=== PATIENT | female | born 1960 | race Caucasian/White ===

== ENCOUNTER → 2016-06-02 | Outpatient (CLI) | payer OTHER ==
[2016-06-02 14:40] LABS: CHLORIDE,CL 109 mmol/L (98-110); SODIUM,NA 140 mmol/L (136-146)
== END ==
LOC: MW.CHRC 13:43
PROVIDERS: ATTEND Family Medicine
DX: E66.01 Morbid (severe) obesity due to excess calories (principal); E03.9 Hypothyroidism, unspecified
CPT/HCPCS: 36415; 80053; 80061; 83036; 84439; 84443; 84481; 85025

== ENCOUNTER → 2016-06-07 | Outpatient (CLI) | payer OTHER | END | disposition home or self-care (01) | LOC: MW.MNT 12:40 | PROVIDERS: ATTEND Family Medicine | DX: E66.09 Other obesity due to excess calories (principal); Z68.43 Body mass index [BMI] 50.0-59.9, adult | CPT/HCPCS: 97802 ==

== ENCOUNTER 2016-08-26 07:30 | Day surgery (SDC) | payer OTHER ==
[~2016-08-26 07:30] MED LIST: Bupivacaine 0.5% 10 ML SDV ONE; Lactated Ringers 1,000 ML IV SCH; Lidocaine 1% 20 ML MDV ONE; Lidocaine 2% 5 ML SDV ONE; Midazolam 1 MG/ML 2 ML SDV ONE; Propofol 200 MG/20 ML SDV ONE; Sodium Chloride 0.9% 10 ML Syringe FLUSH PRN; Sodium Chloride 0.9% 2.5 ML Syringe FLUSH PRN; ceFAZolin 2 GM in Premix Bag 1 BAG IV ONE; fentaNYL 100 MCG/2 ML SDV ONE
--- NOTE | 2016-08-26 09:00 | PCM.PREANE ---
Preanesthetic Assessment - Anesthesia/Transfusion/Family Hx Anesthesia History: Prior Anesthesia Without Reaction Other Type of Anesthesia Reaction Comment: "anxiety while being put under for naso/sinus surgery" Family History of Anesthesia Reaction: No Transfusion History: No Prior Transfusion(s) Intubation History: Unknown - Review of Systems General: No Symptoms Pulmonary: No Symptoms Cardiovascular: No Symptoms Gastrointestinal: No symptoms Neurological: No Symptoms Other: Reports: None - Physical Assessment NPO Status Date: 08/25/16 NPO Status Time: 23:00 O2 Sat by Pulse Oximetry: 96 Respiratory Rate: 16 Vital Signs: Last Vital Signs Temp 36.3 C 08/26/16 07:53 Pulse 84 08/26/16 07:53 Resp 16 08/26/16 07:53 BP 136/83 08/26/16 07:53 Pulse Ox 96 08/26/16 07:53 Height: 1.6 m Weight: 127.459 kg ASA Class: 2 Mental Status: Alert & Oriented x3 Airway Class: Mallampati = 2 Dentition: Reports: Normal Dentition Thyro-Mental Finger Breadths: 3 Mouth Opening Finger Breadths: 3 ROM/Head Extension: Full Lungs: Clear to auscultation, Normal respiratory effort - Allergies Allergies/Adverse Reactions: Allergies Allergy/AdvReac Type Severity Reaction Status Date / Time metronidazole Allergy Rash Verified 08/23/16 08:11 - Blood Blood Available: No - Anesthesia Plan Pre-Op Medication Ordered: None - Acknowledgements Anesthesia Type Planned: MAC Pt an Appropriate Candidate for the Planned Anesthesia: Yes Alternatives and Risks of Anesthesia Discussed w Pt/Guardian: Yes Pt/Guardian Understands and Agrees with Anesthesia Plan: Yes PreAnesthesia Questionnaire HEENT History: Reports: Allergic Rhinitis, Other (See Below) Other HEENT History: wears glasses Cardiovascular History: Reports: Heart Murmur, High Cholesterol Genitourinary History: Reports: 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: Musculoskeletal History: Reports: Arthritis, Back Pain, Chronic Endocrine/Metabolic History: Reports: Obesity/BMI 30+ (BMI 49.8), Other (See Below) Other Endocrine/Metabolic History: states has been on thyroid medication in the past, none now - Past Surgical History Head Surgeries/Procedures: Reports: None HEENT Surgical History: Reports: Naso-Sinus Surgery Female Surgical History: Reports: Section (x2), Endometrial Ablation , Hysterectomy, Tubal Ligation - SUBSTANCE USE Smoking Status *Q: Never Smoker Recreational Drug Use History: No - HOME MEDS Home Medications: Home Meds Fluticasone Propionate [Flonase Allergy Relief] 2 spray NASBOTH DAILY 08/23/16 [ History] Ibuprofen 1 tab PO ASDIRECTED PRN 08/23/16 [History] Multivitamin [Multivitamins] 1 tab PO DAILY 08/23/16 [History] Polyethylene Glycol 3350 [Miralax] 1 dose PO ASDIRECTED PRN 08/23/16 [History] Simvastatin [Zocor] 20 mg PO DAILY 08/23/16 [History] - CURRENT (IN HOUSE) MEDS Current Meds: Current Medications Lactated Ringer's (Ringers, Lactated) 1,000 mls @ 125 mls/hr IV ASDIRECTED RASHEED Last Admin: 08/26/16 07:52 Dose: 125 mls/hr Sodium Chloride (Saline Flush) 10 ml FLUSH ASDIRECTED PRN PRN Reason: Keep Vein Open Sodium Chloride (Saline Flush) 2.5 ml FLUSH ASDIRECTED PRN PRN Reason: Keep Vein Open Discontinued Medications Bupivacaine HCl (Sensorcaine-Mpf 0.5%) Confirm Administered Dose 10 ml .ROUTE .STK-MED ONE Stop: 08/26/16 07:25 Fentanyl (Sublimaze) Confirm Administered Dose 100 mcg .ROUTE .STK-MED ONE Stop: 08/26/16 07:13 Cefazolin Sodium/Dextrose 2 gm (/ Premix) 50 mls @ 100 mls/hr IV ONETIME ONE Stop: 08/25/16 13:59 Lidocaine (Xylocaine-Mpf 2%) Confirm Administered Dose 5 ml .ROUTE .STK-MED ONE Stop: 08/26/16 07:12 Lidocaine HCl (Xylocaine 1%) Confirm Administered Dose 20 ml .ROUTE .STK-MED ONE Stop: 08/26/16 07:25 Midazolam HCl (Versed 1 Mg/Ml) Confirm Administered Dose 2 mg .ROUTE .STK-MED ONE Stop: 08/26/16 07:13 Propofol (Diprivan 20 Ml) Confirm Administered Dose 400 mg .ROUTE .STK-MED ONE Stop: 08/26/16 07:13
[2016-08-26] MEDS ORDERED: Propofol 200 MG/20 ML SDV ONE (10:07)
--- NOTE | 2016-08-26 10:26 | PCM.OPNOTE ---
- General Post-Op/Procedure Note Date of Surgery/Procedure: 08/26/16 Operative Procedure(s): Excision left breast lesion, excision left upper back Findings: Sebaceous cyst left upper back, superficial skin lesion on left anterior breast Pre Op Diagnosis: sebaceous cyst, skin lesion Post-Op Diagnosis: sebaceous cyst, skin lesion Anesthesia Technique: [facility] [place] Primary Surgeon: Eve Clark Condition: Good
[2016-08-26 14:56] VITALS: BP 124/72
--- NOTE | 2016-08-27 12:15 | OR ---
SURGEON: CHIDI BECKER MD DATE OF PROCEDURE: 08/26/2016 PREOPERATIVE DIAGNOSES: Left back lesion, left breast lesion. POSTOPERATIVE DIAGNOSES: Left back lesion, left breast lesion. PROCEDURE PERFORMED: Excision of left upper back lesion, excision of left breast lesion. ANESTHESIA: MAC. FLOORING GRADER: Dr. Mauri Bailey, residential finish carpenter. ESTIMATED BLOOD LOSS: 5 mL. FINDINGS: 1. Superficial left breast skin lesion. 2. Left upper back sebaceous cyst. COMPLICATIONS: None. INDICATIONS: The patient presents to clinic with complaint of a left upper back lesion as well as a left breast lesion. The upper back lesion has been a subcutaneous mass and has been present for some time. It will intermittently get infected, rupture, heal, but then refill. This is consistent with a sebaceous cyst, and the patient would like to have the lesion removed. The patient had a biopsy performed on her left breast many years ago. Afterwards, she developed a scar at the 12 o'clock position, just above her areola. This area fills up with skin cells and dirt, and will sometimes become infected. The patient would like to have this lesion removed as well. We discussed the procedure as well as expected perioperative course. We discussed the risks including bleeding, infection, or damage to surrounding structures. The patient verbalized understanding and wished to proceed. PROCEDURE IN DETAIL: The patient was brought into the operating room and left on the operating room cart. Monitored anesthesia care was induced, and the patient was then moved to the OR table. She was placed in right lateral decubitus position and all bony surfaces were appropriately padded and supported. We started by prepping and draping the back in usual sterile fashion. An elliptical incision was made around the top of the left upper back mass. Dissection was carried down through the subcutaneous tissues using cautery. I entered a cystic-like structure that contained proteinaceous material. This confirmed my diagnosis of a sebaceous cyst. Using a tenotomy scissors, I made my way around the cyst wall and excised it from the surrounding subcutaneous tissues. Once the cyst was removed, I sent it to pathology labeled as left upper back sebaceous cyst. The wound was then closed with interrupted Vicryls and a running 4-0 Monocryl suture. Steri-Strips and sterile dressings were applied. The back table was kept sterile. We then turned our attention to the left breast lesion. The left breast was then prepped and draped in the usual standard fashion. I anesthetized the area underneath the skin lesion with 1% lidocaine plain. The lesion had already been marked out along the skin lines. An elliptical incision was made around the lesion following the skin lines. Using cautery, I dissected down to the subcutaneous tissue and undermined the lesion. Once the lesion was removed, I then sent it to pathology labeled as left breast skin lesion. Hemostasis was achieved with cautery. The wound was then closed with interrupted Vicryls in the subcutaneous layer and with a running 4-0 Monocryl suture in the subcuticular space. Steri-Strips and sterile dressings were applied. All counts were complete and correct at the end of the case. The patient was taken to the PACU in stable condition. DUYEN GOMEZ /[id number]
--- NOTE | 2016-09-09 13:37 | PCM.SN ---
- Free Text/Narrative Note: Operative Report Addendum: The patient had a left upper back excised that was 20 x 15 x 8mm in size. She had a left breast skin lesion removed that was 17 x 8 x 5mm in size.
== END 2016-08-26 11:35 | disposition home or self-care (01) ==
LOC: MW.SDS 07:30
PROVIDERS: ATTEND Surgery
PROC: 0HQ6XZZ Repair Back Skin, External Approach (ICD-10-PCS; principal; 2016-08-26)
PROC: 0HQUXZZ (ICD-10-PCS; 2016-08-26)
PROC: 0HB6XZZ Excision of Back Skin, External Approach (ICD-10-PCS; 2016-08-26)
PROC: 0HB5XZZ Excision of Chest Skin, External Approach (ICD-10-PCS; 2016-08-26)
DX: L72.0 Epidermal cyst (principal); N60.82 Other benign mammary dysplasias of left breast; L82.0 Inflamed seborrheic keratosis; E66.01 Morbid (severe) obesity due to excess calories; Z68.42 Body mass index [BMI] 45.0-49.9, adult; R73.03 Prediabetes; Z79.1 Long term (current) use of non-steroidal anti-inflammatories (NSAID); Z79.899 Other long term (current) drug therapy; Z91.09 Other allergy status, other than to drugs and biological substances
CPT/HCPCS: 11404; 12031; 88304; J2250; J3010; J7120; 00300; J2704

== ENCOUNTER 2021-12-21 22:51 | Emergency (ER) | payer OTHER ==
[2021-12-21 23:01] VITALS: BP 167/86; PULSE 85
== END 2021-12-21 23:27 | disposition home or self-care (01) ==
LOC: MW.ED 22:51
DX: S93.402A Sprain of unspecified ligament of left ankle, initial encounter (principal); E78.00 Pure hypercholesterolemia, unspecified; E66.9 Obesity, unspecified; Z68.43 Body mass index [BMI] 50.0-59.9, adult; Z79.899 Other long term (current) drug therapy; Z88.8 Allergy status to other drugs, medicaments and biological substances; W01.0XXA Fall on same level from slipping, tripping and stumbling without subsequent striking against object, initial encounter; Y99.0 Civilian activity done for income or pay
CPT/HCPCS: 73610-26-LT; 73610-LT; 99283

== ENCOUNTER 2022-03-05 06:35 | Day surgery (SDC) | payer OTHER ==
[~2022-03-05 06:35] MED LIST changes: -Bupivacaine 0.5% 10 ML SDV ONE; -Lidocaine 1% 20 ML MDV ONE; -Lidocaine 2% 5 ML SDV ONE; -Midazolam 1 MG/ML 2 ML SDV ONE; -Propofol 200 MG/20 ML SDV ONE; -Sodium Chloride 0.9% 10 ML Syringe FLUSH PRN; -Sodium Chloride 0.9% 2.5 ML Syringe FLUSH PRN; -ceFAZolin 2 GM in Premix Bag 1 BAG IV ONE; -fentaNYL 100 MCG/2 ML SDV ONE
[2022-03-05] MEDS ORDERED: fentaNYL 100 MCG/2 ML SDV ONE (07:20)
[2022-03-05] MEDS ORDERED: Propofol 200 MG/20 ML SDV ONE ×2 (07:20→08:18)
[2022-03-05] MEDS ORDERED: Lidocaine 2% 5 ML SDV ONE (07:20)
[2022-03-05] MEDS ORDERED: Dexmedetomidine 200 MCG/2 ML SDV ONE (07:26)
[2022-03-05] MEDS ORDERED: Water For Injection, Sterile 20 ML ONE (07:27)
[2022-03-05] MEDS ORDERED: Lactated Ringers 1,000 ML IV SCH (08:45)
[2022-03-05 10:58] VITALS: BP 113/76; PULSE 68
== END 2022-03-05 09:20 | disposition home or self-care (01) ==
LOC: MW.SDS 06:35
PROVIDERS: ATTEND Surgery
DX: R19.4 Change in bowel habit (principal); I10 Essential (primary) hypertension; E78.00 Pure hypercholesterolemia, unspecified; J30.9 Allergic rhinitis, unspecified; M19.90 Unspecified osteoarthritis, unspecified site; E66.01 Morbid (severe) obesity due to excess calories; R73.03 Prediabetes; E03.8 Other specified hypothyroidism; Z88.1 Allergy status to other antibiotic agents; Z86.010 Personal history of colon polyps; Z79.899 Other long term (current) drug therapy; Z79.890 Hormone replacement therapy; Z68.42 Body mass index [BMI] 45.0-49.9, adult; Z98.890 Other specified postprocedural states
CPT/HCPCS: 45378; J2704; J3010; J7120; J3490